=== PATIENT | female | born 1945 | race Caucasian/White ===

== ENCOUNTER 2017-12-30 10:11 | Emergency (ER) | payer OTHER ==
[~2017-12-30] VITALS: Ht 162.6 cm; Wt 34.9 kg
--- NOTE | ~2017-12-30 | EKG ---
[place] [address] [address] [facility] [place] [address] ELECTROCARDIOGRAM REPORT Name: RODRICK HOPKINS MARIA DEL CARMEN Room #: DEP [facility]#: [id number] Admission: 12/30/17 Attend Phys: Discharge: 12/30/17 Date of : 43 Report #: [id number] THIS REPORT FOR: //name// [facility] ED Test Date: 2017-12-30 Test Time: 10:34:17 Pat Name: RODRICK HOPKINS Department: Room: Gender: F Unit Coordinator: as : 1945 Requested By: Sid Contreras Order Number: [id number] MD: Xavier Yoder Measurements Intervals [place] Rate: 75 P: 84 SC: 176 QRS: 37 QRSD: 94 T: 61 QT: 376 QTc: 420 Interpretive Statements Sinus rhythm Anteroseptal infarct, age indeterminate Baseline wander in lead(s) V5 Compared to ECG 07/04/2013 06:22:27 No significant changes Electronically Signed On 12-31-2017 7:48:47 CDT by Xavier Yoder [email or web address] <ELECTRONICALLY SIGNED> By: Xavier Yoder MD, [facility] 12/31/17 0748 1034 1034 Xavier Yoder MD, [facility] /EPI
[~2017-12-30 10:11] MED LIST: ASPIRIN325 PO; CIPROFLOXACIN500 M1 PO; FELODIPINE 5 MG5 M1 PO; FELODIPINE ER10 MG PO; FISH OIL 1,0001 EAC9 PO; FLAGYL500 MG PO; NORCO 5-325 TA1 EACH PO; PHENERGAN 25 MG25 M1 PO; SIMVASTATIN20 MG PO; VITCB500GO PO; ZANTAC 150MG T150 M1 PO; ZOFRAN ODT4 MG PO
[2017-12-30] MEDS ORDERED: OMEPRAZOLE40 MG PO (10:28)
[2017-12-30] MEDS ORDERED: LISINOPRIL5 MG PO (10:28)
[2017-12-30 10:36] LABS: ABSOLUTE NEUTROPHILS 2.6 thou/uL (1.4-8.2); BASOPHILS 0.6 % (0.0-2.0); EOSINOPHILS 4.3 % (0.0-3.0); HEMATOCRIT 46.2 % (37.0-47.0); HEMOGLOBIN 15.6 gm/dL (12.0-15.0); LYMPHOCYTES 37.9 % (24.0-44.0); MCH 32.3 pg (26.0-34.0); MCHC 33.8 g/dL (28.0-37.0); MCV 95.5 fL (80.0-100.0); PLATELET COUNT 224 thou/uL (150-400); POLYS 48.2 % (36.0-66.0); RBC 4.83 mil/uL (4.20-5.00); RDW 14.4 % (10.5-14.5); WBC 5.3 thou/uL (4.0-11.0)
[2017-12-30 10:47] LABS: URINE BILIRUBIN NEGATIVE (Negative); URINE BLOOD NEGATIVE (Negative); URINE CLARITY CLEAR; URINE COLOR YELLOW; URINE GLUCOSE-RANDOM* 1+ (Negative); URINE KETONES NEGATIVE (Negative); URINE LEUKOCYTES-REFLEX NEGATIVE (Negative); URINE NITRITE-REFLEX NEGATIVE (Negative); URINE PROTEIN (DIPSTICK) NEGATIVE (Negative); URINE SPECIFIC GRAVITY 1.025 (1.005-1.035); URINE UROBILINOGEN 0.2 E.U./dl (0.2-1.0)
[2017-12-30 10:48] LABS: CALCIUM 9.9 mg/dL (8.5-10.1); CREATININE 0.7 mg/dL (0.6-1.0); POTASSIUM 3.7 mmol/L (3.5-5.1)
[2017-12-30 10:54] LABS: TOTAL BILIRUBIN 0.5 mg/dL (<0.1-1.0); TOTAL PROTEIN 7.7 g/dL (6.4-8.2)
[2017-12-30] MEDS ORDERED: CARAFATE 1 GM TA1 G1 PO (12:01)
[2017-12-30] MEDS ORDERED: ZOFRAN ODT4 MG PO (12:01)
[2017-12-30 12:28] VITALS: BP 130/72
== END 2017-12-30 12:29 | disposition home or self-care (01) ==
LOC: ER 10:11
PROVIDERS: Physician Assistant
DX: K29.00 Acute gastritis without bleeding (principal); R10.13 Epigastric pain; I10 Essential (primary) hypertension; E78.5 Hyperlipidemia, unspecified; F17.210 Nicotine dependence, cigarettes, uncomplicated